=== PATIENT | female | born 1960 | race Caucasian/White ===

== ENCOUNTER 2016-10-14 08:14 | Day surgery (SDC) | payer OTHER ==
[~2016-10-14] VITALS: Ht 170.2 cm; Wt 55.0 kg
[~2016-10-14 08:14] MED LIST: CLON0.5T PO; XANA0.5T PO
[2016-10-14 08:50] VITALS: BP 113/87; PULSE 98; RESP 20; TEMP 98; O2SAT 94
[2016-10-14] MEDS ORDERED: ALPR.5 PO (09:29)
[2016-10-14 09:31] LABS: APTT (PATIENT) 26.4 SEC (24.3-30.1); INTERNATIONAL NORMALIZED RATIO 0.9 RATIO; PROTHROMBIN TIME - PATIENT 10.4 SEC (9.8-11.6)
[2016-10-14] MEDS ORDERED: ceFAZolin 2 GM PREMIX 50 ML ONE (10:24)
[2016-10-14] MEDS ORDERED: MIDAZOLAM HCL 5 MG/5 ML VIAL ONE (10:28)
[2016-10-14] MEDS ORDERED: fentaNYL CITRATE 250 MCG/5 ML AMP ONE (10:28)
[2016-10-14] MEDS ORDERED: LIDOCAINE 1%/EPINEPHrine 1:100,000 SOLN 20 ML VIAL ONE (10:59)
[2016-10-14 11:45] VITALS: BP 125/68; PULSE 86; RESP 20; TEMP 97.5; O2SAT 96
[2016-10-14 12:00] VITALS: BP 125/66; PULSE 70; RESP 20; O2SAT 95
[2016-10-14 12:30] VITALS: BP 135/78; PULSE 85; RESP 20; O2SAT 96
[2016-10-14] MEDS ORDERED: ONDANSETRON HCL 4 MG/2 ML VIAL IV PUSH ONE (12:30)
--- NOTE | 2016-10-14 12:48 | PD.RAD ---
Post Procedure Progress Note Pre Procedure Diagnosis: (1) History of head and neck cancer Post Procedure Diagnosis: (1) History of head and neck cancer Procedure Date: Oct 14, 2016 Supervising Radiologist: Jacky Jay Proceduralist/Assist: Steven Sanches RT(R), RT Karishma(R)() Anesthesia: Local, Analgesia, Conscious Sedation Plan of Activity Patient to Unit: [facility]OPU See PACS Report for procedural detail/treatment Central Venous Access Device Procedure 1 Right Internal Jugular Infusaport Removal single lumen Turkish: 8 Jacky Jay MD Oct 14, 2016 12:48
[2016-10-14 13:00] VITALS: BP 131/72; PULSE 75; RESP 20; O2SAT 92
--- NOTE | 2016-10-14 16:10 | RADRPT ---
EXAM DATE/TIME: 10/14/2016 00:00 [facility] COMPARISON: No previous studies available for comparison. INDICATIONS : Patient presents with a history of head and neck cancer in need of right sided port removal. MEDICAL HISTORY : Hx of tongue cancer SURGICAL HISTORY : Port insertion right side ENCOUNTER: Initial ACUITY: 3 months PAIN SCORE: 0/10 LOCATION: N/A SEDATION TIME: 30 minutes 1.) 5 mg midazolam (Versed) IV 2.) 250 mcg fentanyl (Sublimaze) IV Prophylactic antibiotics were administered with appropriate pre-procedure timing. Vancomycin within 2 hrs of procedure, Ancef (or alternative) within 1 hr of procedure. PROCEDURE : 1. Removal of [id number]. 2. Conscious sedation with continuous EKG and oximetry monitoring. The risk, benefits and potential complications of [id number] removal were discussed. Written conse nt was obtained. The patient was placed supine. The chest wall was prepped in sterile fashion. Full sterile techniqu e was used, including cap, mask, sterile gloves and gown, and a large sterile sheet. Hand hygiene an d 2% chlorhexidine and/or Betadine/alcohol prep was utilized per protocol for cutaneous antisepsis. The skin and subcutaneous tissues were infiltrated with local anesthetic solution. A small incision w as made, the subcutaneous pocket was opened. The port was dissected from the subcutaneous tissues and easily removed in one piece. The pocket incision was closed with subcuticular Vicryl suture. Steri -Strips were applied. Conscious sedation was performed with the prescribed dosages and duration as above in the presence of an independent trained radiology nurse to assist in the monitoring of the patient. EKG and oximetry remained stable throughout the procedure. The patient tolerated the procedure well and there were no complications. The patient was sent to post anesthesia recovery in stable condition. CONCLUSION: Uncomplicated port removal as above. Jacky Jay MD on October 14, 2016 at 16:08 Board Certified Radiologist. This report was verified electronically.
== END 2016-10-14 13:55 | disposition home or self-care (01) ==
LOC: HROP 08:14 → HRIP 08:17 → HROP 13:55
PROVIDERS: ATTEND Internal Medicine Hematology & Oncology
DX: Z45.2 Encounter for adjustment and management of vascular access device (principal); C01 Malignant neoplasm of base of tongue; F41.9 Anxiety disorder, unspecified
CPT/HCPCS: 36590; 85610; 85730; 99152; 99153; J0690; J2250; J2405; J3010